=== PATIENT | female | born 1985 | race Two or more races ===

== ENCOUNTER 2019-05-13 17:41 | Inpatient (IN) | payer OTHER ==
[~2019-05-13] VITALS: Ht 162.6 cm; Wt 78.5 kg
[~2019-05-13 17:41] MED LIST: ASPIR 8181 MG PO; FOLIC ACID1 MG PO; PRENATABS FA T1 EACH PO
== END 2019-05-15 12:19 | disposition home or self-care (01) | DRG 833 ==
LOC: OBS/DEL 17:41 → LDR 05-14 02:38
PROVIDERS: ADMIT Obstetrics & Gynecology
PROC: 4A1HXCZ Monitoring of Products of Conception, Cardiac Rate, External Approach (ICD-10-PCS; principal; 2019-05-14)
DX: O26.893 Other specified pregnancy related conditions, third trimester (principal); O47.00 False labor before 37 completed weeks of gestation, unspecified trimester; K52.89 Other specified noninfective gastroenteritis and colitis; Z34.83 Encounter for supervision of other normal pregnancy, third trimester

== ENCOUNTER 2019-05-22 13:40 | Outpatient (CLI) | payer OTHER | END 2019-05-22 15:42 | disposition home or self-care (01) | LOC: NST 13:40 | DX: Z34.83 Encounter for supervision of other normal pregnancy, third trimester (principal) ==

== ENCOUNTER 2019-05-23 14:05 | Inpatient (IN) | payer OTHER ==
[~2019-05-23] VITALS: Ht 160 cm; Wt 2.7 kg
[2019-05-28] MEDS ORDERED: FLONASE16 GM NS (12:02)
== END 2019-05-31 13:53 | disposition home or self-care (01) | DRG 785 ==
LOC: OB/GYN 05-27 14:30 → LDR 05-28 10:27 → OB/GYN 05-28 10:27 → O/R 05-28 14:13 → OB/GYN 05-28 16:46
PROVIDERS: ADMIT Obstetrics & Gynecology
PROC: 0UL70ZZ Occlusion of Bilateral Fallopian Tubes, Open Approach (ICD-10-PCS; 2019-05-28)
PROC: 4A0HXFZ Measurement of Products of Conception, Cardiac Rhythm, External Approach (ICD-10-PCS; 2019-05-28)
PROC: 10D00Z1 Extraction of Products of Conception, Low, Open Approach (ICD-10-PCS; principal; 2019-05-28 14:00)
DX: O82 Encounter for cesarean delivery without indication (principal); Z3A.37 37 weeks gestation of pregnancy; Z37.0 Single live birth; Z30.2 Encounter for sterilization

== ENCOUNTER 2019-05-26 11:32 | Outpatient (CLI) | payer OTHER | END 2019-05-26 13:14 | disposition home or self-care (01) | LOC: NST 11:32 | DX: Z34.83 Encounter for supervision of other normal pregnancy, third trimester (principal) ==

== ENCOUNTER 2022-02-24 16:42 | Emergency (ER) | payer OTHER ==
[~2022-02-24] VITALS: Ht 160 cm; Wt 62.6 kg
[~2022-02-24 16:42] MED LIST changes: +FLONASE16 GM NS
== END 2022-02-24 18:11 | disposition home or self-care (01) ==
LOC: ER 16:42
DX: T78.1XXA Other adverse food reactions, not elsewhere classified, initial encounter (principal); Z91.013 Allergy to seafood

== ENCOUNTER 2025-03-19 13:00 | Outpatient (CLI) | payer OTHER ==
[2025-03-19 14:20] LABS: BILIRUBIN TOTAL 0.36 mg/dL (0.3-1.2); CALCIUM 9.5 mg/dL (8.5-10.1); CREATININE SERUM 0.7 mg/dL (0.55-1.02); GFR 94.15; GLOBULINA 3.9 G/DL (2.4-3.5); POTASSIUM 4.47 mEq/L (3.5-5.1); TOTAL PROTEIN 7.9 gm/dL (6.4-8.2)
[2025-03-19 15:55] LABS: INR 1.01
[2025-03-19 15:57] LABS: HEMATOCRIT 41.1 % (36.0-45.00); HEMOGLOBIN 13.8 g/dL (12.0-15.00); MEAN CELL VOLUME 91.2 fL (80.00-100.00); MEAN CORPUSCULAR HEMOGLOBIN 30.6 pg (27.00-32.0); MEAN CORPUSCULAR HGB CONC 33.7 g/dl (32.0-36.0); PLATELET COUNT 239 K/uL (150-450)
== END 2025-03-19 13:05 | disposition home or self-care (01) ==
LOC: RAD 13:00
PROVIDERS: ATTEND Obstetrics & Gynecology
DX: R05.9 Cough, unspecified (principal); Z01.818 Encounter for other preprocedural examination; I10 Essential (primary) hypertension; R91.1 Solitary pulmonary nodule

== ENCOUNTER 2025-03-23 08:15 | Inpatient (IN) | payer OTHER ==
[~2025-03-23] VITALS: Ht 160 cm; Wt 54.4 kg
[2025-03-25] MEDS ORDERED: CEFAZOLIN SODIUM 1,000 MG VIAL ONE (07:56)
[2025-03-25] MEDS ORDERED: POVIDONE-IODINE 118 ML BOTT TOP ONE (10:05)
[2025-03-25] MEDS ORDERED: CHLORHEXIDINE GLUCONATE 120 ML BOTTLE TOP ONE (10:16)
[2025-03-25] MEDS ORDERED: MORPHINE SULFATE 4 MG/ML CARTRIDGE IV PRN (12:15)
[2025-03-25] MEDS ORDERED: RINGERS SOLUTION,LACTATED 1,000 ML IV SCH (12:15)
[2025-03-25] MEDS ORDERED: MORPHINE SULFATE 4 MG/ML VIAL IV ONE ×2 (12:35→14:20)
[2025-03-25 17:04] VITALS: BP 97/64
[2025-03-25] MEDS ORDERED: ONDANSETRON HCL 2 MG/ML VIAL IV PRN (17:45)
[2025-03-26 01:43] VITALS: BP 114/68
[2025-03-26 08:00] VITALS: BP 114/78
[2025-03-26] MEDS ORDERED: IBUprofen 400 MG TABLET PO SCH (09:00)
[2025-03-26] MEDS ORDERED: ENOXAPARIN SODIUM 40 MG/0.4 ML SYRINGE SUBCUTANEO SCH (09:00)
[2025-03-26 11:48] LABS: BASO % 0.1 % (0.1-1.2); EOS # 0.45 (0.04-0.54); EOS % 2.9 % (0.7-7.0); HEMOGLOBIN 12.2 g/dL (11.2-15.7); LYMPH # 1.13 (1.18-3.74); LYMPH % 7.2 % (19.3-53.1); MEAN CORPUSCULAR HEMOGLOBIN 29.9 pg (25.6-32.2); MONO # 0.56 (0.24-0.82); MONO % 3.6 % (4.7-12.5); NEUT # 13.47 (1.56-6.13); NEUT % 85.9 % (34.0-71.1); PLATELET COUNT 273 K/uL (163-369); RED BLOOD COUNT 4.08 M/uL (3.93-5.22); RED CELL DISTRIBUTION WIDTH 12.3 % (11.6-14.4)
[2025-03-26 16:48] VITALS: BP 102/63
[2025-03-27 02:03] VITALS: BP 100/65
[2025-03-27] MEDS ORDERED: OxyCODONE HCL 5 MG TABLET (ROXICODONE) PO PRN (06:00)
[2025-03-27 08:00] VITALS: BP 98/63
== END 2025-03-27 10:33 | disposition home or self-care (01) | DRG 743 ==
LOC: OB/GYN 03-25 05:05 → O/R 03-25 05:05 → SURH 03-25 08:15 → OB/GYN 03-25 13:13
PROVIDERS: ADMIT Obstetrics & Gynecology; ATTEND Obstetrics & Gynecology
PROC: 0DNW0ZZ Release Peritoneum, Open Approach (ICD-10-PCS; 2025-03-25)
PROC: 0UT90ZL Resection of Uterus, Supracervical, Open Approach (ICD-10-PCS; principal; 2025-03-25 11:00)
DX: D25.9 Leiomyoma of uterus, unspecified (principal); N73.9 Female pelvic inflammatory disease, unspecified